=== PATIENT | female | born 1960 | race African-American/Black ===

== ENCOUNTER 2018-10-02 15:39 | Emergency (ER) | payer OTHER, MEDICARE ==
[2018-10-02] VITALS (12 sets, daily range): BP systolic 85–153; BP diastolic 50–94
[~2018-10-02] VITALS: Ht 172.7 cm; Wt 59.0 kg
--- NOTE | 2018-10-02 15:45 | NUR ---
ED Nurse Note: Patient brought in by ambulance from home. Patient in on CPAP, altered and not able to follow commands at this time. Chest rise and fall noted. Pulse oximetry reading > 94%. Per spouse, patient was gasping for air for the past [address] min[address] patient on BiPAP and typist. No ectopy noted.
[2018-10-02] MEDS ORDERED: RILUZOLE50 M1 ORAL (15:48)
--- NOTE | 2018-10-02 15:50 | NUR ---
ED Nurse Note: Skin warm to touch, cap refill < 3 sec. Reports no trauma.
[2018-10-02 16:00] LABS: BASOPHILS % (AUTO) 2.2 % (0.0-2.0); HEMATOCRIT 44.9 % (37.0-47.0); HEMOGLOBIN 14.4 G/DL (12.0-16.0); LYMPHOCYTES % (AUTO) 6.9 % (20.0-45.0); MEAN CORPUSCULAR VOLUME 96 FL (80-99); MONOCYTES % (AUTO) 3.2 % (1.0-10.0); NEUTROPHILS % (AUTO) 87.8 % (45.0-75.0); PLATELET COUNT 310 K/UL (150-450); RED BLOOD COUNT 4.66 M/UL (4.20-5.40); RED CELL DISTRIBUTION WIDTH 11.1 % (11.6-14.8); WHITE BLOOD COUNT 11.1 K/UL (4.8-10.8)
[2018-10-02] MEDS ORDERED: Naloxone 1mg/ml 2ml IVP ONE (16:00)
--- NOTE | 2018-10-02 16:00 | Emergency Room Report ---
History of Present Illness General Chief Complaint: Dyspnea/Respdistress Source: Family Member, EMS Present Illness HPI Patient presents by paramedics for acute shortness of breath The has presented and reports that the patient had an episode of appearing short of breath gasping for air and essentially needing to call paramedics Prior to this the patient was responsive upon arrival patient appears extremely weak Response to physical stimuli however Not responsive to verbal stimuli Patient does have a gag reflex reproduced However appears to have decreased respirations reports history of ALS no previous airway intubations Patient was also recently seen at the hospital for shortness of breath Otherwise there was no reports of fevers Allergies: Coded Allergies: No Known Allergies (Unverified , 10/02/18) Patient History Limited by: medical condition Past Medical History: see triage record Now: No Reviewed Nursing Documentation: PMH: Agreed; PSxH: Agreed Nursing Documentation-PMH Past Medical History: No History, Except For Review of Systems All Other Systems: limited - Other than the ones mentioned in the history of present illness all others are reviewed however they do stay limited due to the patient's mental status Physical Exam Vital Signs Date Time Temp Pulse Resp B/P (MAP) Pulse Ox O2 Delivery O2 Flow Rate FiO2 10/02/18 15:37 110 20 187/117 (140) 100 Bi-pap Sp02 EP Interpretation: reviewed, normal General Appearance: severe distress - Patient has decreased inspirations week Head: normocephalic, atraumatic Eyes: bilateral eye other - pupils are 2 mm bilaterally sluggish ENT: no angioedema Neck: supple Respiratory: other - Decreased breath sounds Cardiovascular #1: tachycardia Gastrointestinal: non tender, soft Musculoskeletal: other - Patient withdraws from physical stimuli otherwise not following commands Neurologic: responsive - As noted above Skin: no rash Lymphatic: no adenopathy Procedures Critical Care Time Critical Care Time 50 minutes for multiple re-evaluations initial critical presentation cardiac poor cardiopulmonary, respiratory arrest not including any procedural time Intubation Intubation : Consent: Emergent Intubation Method: orotracheal Tube Size (cm): 7.5 Medications: Etomidate, Succinylcholine Breath Sounds after Intubation: equal Intubation Complications: no complications Attempts: One Patient Tolerated: Well Complications: None Medical Decision Making Diagnostic Impression: Primary Impression: Respiratory failure Additional Impression: ALS (amyotrophic lateral sclerosis) ER Course Patient is a fairly complex patient with multiple differential to consideration including but not limited to cardiac cardiopulmonary and vascular emergencies Given the patient's history ALS progression also in consideration Patient's is here and discussion with him, given the patient's worsening ABG and clinical presentation airway intubation was performed Patient receiving further hydration After oxygenation is becoming more oriented and responsive requiring further sedation [facility] [place] Initially patient admitted to ICU After further work-up and intervention Patient will be transported by critical care transport and physician Labs Test 10/02/18 15:30 10/02/18 15:45 10/02/18 15:55 10/02/18 17:07 White Blood Count 11.1 K/UL (4.8-10.8) Red Blood Count 4.66 M/UL (4.20-5.40) Hemoglobin 14.4 G/DL (12.0-16.0) Hematocrit 44.9 % (37.0-47.0) Mean Corpuscular Volume 96 FL (80-99) Mean Corpuscular Hemoglobin 31.0 PG (27.0-31.0) Mean Corpuscular Hemoglobin Concent 32.1 G/DL (32.0-36.0) Red Cell Distribution Width 11.1 % (11.6-14.8) Platelet Count 310 K/UL (150-450) Mean Platelet Volume 9.4 FL (6.5-10.1) Neutrophils (%) (Auto) 87.8 % (45.0-75.0) Lymphocytes (%) (Auto) 6.9 % (20.0-45.0) Monocytes (%) (Auto) 3.2 % (1.0-10.0) Eosinophils (%) (Auto) 0.0 % (0.0-3.0) Basophils (%) (Auto) 2.2 % (0.0-2.0) Prothrombin Time 11.4 SEC (9.30-11.50) Prothromb Time International Ratio 1.1 (0.9-1.1) Activated Partial Thromboplast Time 27 SEC (23-33) Sodium Level 145 MMOL/L (136-145) Potassium Level 4.6 MMOL/L (3.5-5.1) Chloride Level 102 MMOL/L (98-107) Carbon Dioxide Level 42 MMOL/L (21-32) Anion Gap 1 mmol/L (5-15) Blood Urea Nitrogen 14 mg/dL (7-18) Creatinine 0.6 MG/DL (0.55-1.30) Estimat Glomerular Filtration Rate > 60 mL/min (>60) Glucose Level 218 MG/DL (74-106) Lactic Acid Level 1.60 mmol/L (0.4-2.0) Calcium Level 10.5 MG/DL (8.5-10.1) Total Bilirubin 0.6 MG/DL (0.2-1.0) Aspartate Amino Transf (AST/SGOT) 19 U/L (15-37) Alanine Aminotransferase (ALT/SGPT) 22 U/L (12-78) Alkaline Phosphatase 94 U/L (46-116) Total Creatine Kinase 27 U/L (26-308) Creatine Kinase MB 1.0 NG/ML (0.0-3.6) Creatine Kinase MB Relative Index 3.7 Troponin I 0.055 ng/mL (0.000-0.056) Pro-B-Type Natriuretic Peptide 76 pg/mL (0-125) Total Protein 8.9 G/DL (6.4-8.2) Albumin 4.4 G/DL (3.4-5.0) Globulin 4.5 g/dL Albumin/Globulin Ratio 1.0 (1.0-2.7) Triglycerides Level 61 MG/DL (30-150) Lipase 195 U/L (73-393) Arterial Blood pH 7.216 (7.350-7.450) 7.212 (7.350-7.450) Arterial Blood Partial Pressure CO2 90.8 mmHg (35.0-45.0) 105.8 mmHg (35.0-45.0) Arterial Blood Partial Pressure O2 103.2 mmHg (75.0-100.0) 94.9 mmHg (75.0-100.0) Arterial Blood HCO3 36.0 mmol/L (22.0-26.0) 41.6 mmol/L (22.0-26.0) Arterial Blood Oxygen Saturation 96.2 % (95-100) 95.9 % (95-100) Arterial Blood Base Excess 4.9 (-2-2) 9.5 (-2-2) Ziggy Test Positive Positive Urine Color Pale yellow Urine Appearance Clear Urine pH 5 (4.5-8.0) Urine Specific [place] 1.025 (1.005-1.035) Urine Protein 2+ (NEGATIVE) Urine Glucose (UA) Negative (NEGATIVE) Urine Ketones Negative (NEGATIVE) Urine Blood 5+ (NEGATIVE) Urine Nitrite Negative (NEGATIVE) Urine Bilirubin Negative (NEGATIVE) Urine Urobilinogen Normal MG/DL (0.0-1.0) Urine Leukocyte Esterase Negative (NEGATIVE) Urine RBC 10-15 /HPF (0 - 2) Urine WBC 0-2 /HPF (0 - 2) Urine Squamous Epithelial Cells Occasional /LPF Urine Bacteria Few /HPF (NONE) Test 10/02/18 19:22 Arterial Blood pH 7.500 (7.350-7.450) Arterial Blood Partial Pressure CO2 39.3 mmHg (35.0-45.0) Arterial Blood Partial Pressure O2 140.2 mmHg (75.0-100.0) Arterial Blood HCO3 30.0 mmol/L (22.0-26.0) Arterial Blood Oxygen Saturation 98.9 % (95-100) Arterial Blood Base Excess 6.4 (-2-2) Ziggy Test N/a Rhythm Strip Diag. Results EP Interpretation: yes Rate: 66 Rhythm: NSR, no PVC's, no ectopy Chest X-Ray Diagnostic Results Chest X-Ray Diagnostic Results #1: Chest X-Ray Ordered: Yes # of Views/Limited/Complete: 1 View Indication: Chest Pain EP Interpretation: Yes Interpretation: no consolidation, no effusion, no pneumothorax Impression: No acute disease Electronically Signed by: Henry Nice DO Chest X-Ray Diagnostic Results #2: Chest X-Ray Ordered: Yes # of Views/Limited/Complete: 1 View Indication: Other - Intubation EP Interpretation: Yes Interpretation: no consolidation, no effusion, no pneumothorax, other - ET tube appropriate Impression: Other - ET tube a properly positioned Electronically Signed by: Henry Nice DO Last Vital Signs Date Time Temp Pulse Resp B/P (MAP) Pulse Ox O2 Delivery O2 Flow Rate FiO2 10/02/18 15:37 110 20 187/117 (140) 100 Bi-pap Status: improved Disposition: XFER SHT-TRM HOSP Condition: Critical Henry Nice DO Oct 02, 2018 16:00
[2018-10-02 16:07] LABS: APPEARANCE,URINE CLEAR; BILIRUBIN, URINE NEGATIVE (NEGATIVE); COLOR,URINE PALE YELLOW; GLUCOSE, URINE (UA) NEGATIVE (NEGATIVE); KETONES,URINE NEGATIVE (NEGATIVE); LEUKOCYTE ESTERASE ,URINE NEGATIVE (NEGATIVE); NITRITE,URINE NEGATIVE (NEGATIVE); PH,URINE 5 (4.5-8.0); PROTEIN,URINE 2+ (NEGATIVE); UROBILINOGEN,URINE NORMAL MG/DL (0.0-1.0)
--- NOTE | 2018-10-02 16:10 | NUR ---
ED Nurse Note: Per spouse, patient not able to move BUE, but was able to walk without assistive device.
[2018-10-02 16:14] LABS: INR 1.1 (0.9-1.1)
--- NOTE | 2018-10-02 16:15 | NUR ---
ED Nurse Note: Patient able to open her eye spontaneously and recognized spouse. Patient remained on BiPAP and maintaining pulse oximetry reading @ 99%.
--- NOTE | 2018-10-02 16:18 | Diagnostic Imaging Report ---
Indication: Shortness of breath Technique: One view of the chest Comparison: none Findings: Lungs and pleural spaces are clear. Heart size is normal. Aorta is somewhat ectatic. Impression: No acute process
[2018-10-02 16:50] LABS: ALANINE AMINOTRANSFERASE 22 U/L (12-78); ALBUMIN 4.4 G/DL (3.4-5.0); ALKALINE PHOSPHATASE 94 U/L (46-116); ANION GAP 1 mmol/L (5-15); ASPARTATE AMINO TRANSFERASE 19 U/L (15-37); BILIRUBIN,TOTAL 0.6 MG/DL (0.2-1.0); BLOOD UREA NITROGEN 14 mg/dL (7-18); CALCIUM 10.5 MG/DL (8.5-10.1); CHLORIDE 102 MMOL/L (98-107); CREATINE KINASE 27 U/L (26-308); CREATININE 0.6 MG/DL (0.55-1.30); POTASSIUM 4.6 MMOL/L (3.5-5.1); SODIUM 145 MMOL/L (136-145)
[2018-10-02 16:52] LABS: CARBON DIOXIDE 42 MMOL/L (21-32)
--- NOTE | 2018-10-02 17:00 | NUR ---
ED Nurse Note: Dr. Nice ordered to hold CT scan of head at this time.
--- NOTE | 2018-10-02 17:36 | NUR ---
ED Nurse Note: Repeat ABG done and ERMD aware of result. RT Andrzej changed BiPAP setting. No further order received. Patient able to open her eyes when RN called her name and able to make eye contact.
--- NOTE | 2018-10-02 17:55 | NUR ---
ED Nurse Note: Etomidate 20mg and Succinylcholine 100mg given via IV @ RAC for intubation. Dr. Nice intubated pateint with size 7.5 on the 1st attempt @ 21cm to right lip. RN able to ausculate clear breath sounds bilaterally and pulse oximetry reading maintaining > 95%.
--- NOTE | 2018-10-02 18:05 | NUR ---
ED Nurse Note: Chest X-ray tech at bedside. Dr. Nice ordered to place intubation tube @ 20cm. Addendum: 10/02/18 at 1945 by PETER RUMA Donnelly repositioned ET tube.
--- NOTE | 2018-10-02 18:08 | NUR ---
ED Nurse Note: ERMD notified that patient biting on tube and having generalied shaking in BLE. Will carry out the order.
--- NOTE | 2018-10-02 18:21 | Diagnostic Imaging Report ---
Indication: Intubation Comparison: Earlier same day A single view chest radiograph was obtained. Findings: Endotracheal tube is in good position 2 cm above the arthur. No change otherwise. Stomach is distended with air. IMPRESSION: Endotracheal tube in good position
--- NOTE | 2018-10-02 18:35 | NUR ---
ED Nurse Note: Patient remained restless. Dr. Nice administered Propofol 30mg IVP via left wrist 20g.
--- NOTE | 2018-10-02 19:05 | NUR ---
ED Nurse Note: Dr. Bray at bedside and speaking to family members.
--- NOTE | 2018-10-02 19:10 | NUR ---
ED Nurse Note: Report given to RUMA Cardenas. Patient mechanically ventilating, maintaining pulse oximetry reading > 95%. Propofol infusing to right AC @ 1.76ml/hr (5mcg/kg/min). IV site remained intact to right AC 20g and left hand 20g. Patient able to open eyes when RN called her name. Bed in lowest position.
--- NOTE | 2018-10-02 19:13 | NUR ---
ED Nurse Note: RN attempted to give report. Nurse not available. will call back in 10min.
--- NOTE | 2018-10-02 19:23 | NUR ---
called and staes:order ABG,BMP,Troponin per [facility] instructions. Ordered.
--- NOTE | 2018-10-02 19:26 | History & Physical ---
History and Physical History & Physicial Michael Bray MD Oct 02, 2018 19:26
--- NOTE | 2018-10-02 19:27 | NUR ---
Spoke with Harleen at [facility]-notified of new orders. Will get results and call [facility] back.
--- NOTE | 2018-10-02 19:30 | NUR ---
ED Nurse Note: Endorsed NG tube insertion to RUMA Cardenas.
--- NOTE | 2018-10-02 19:40 | NUR ---
ED Nurse Note: NG tube was placed in, right nares 55cm. Patient tolerated procedure well. Low constant suctioning was seted up.
--- NOTE | 2018-10-02 20:09 | NUR ---
Per adjust FI02 to 40%. Respiratory notified.
[2018-10-02 20:16] LABS: ANION GAP 2 mmol/L (5-15); BLOOD UREA NITROGEN 11 mg/dL (7-18); CALCIUM 10.2 MG/DL (8.5-10.1); CARBON DIOXIDE 35 MMOL/L (21-32); CHLORIDE 108 MMOL/L (98-107); CREATININE 0.5 MG/DL (0.55-1.30); POTASSIUM 3.8 MMOL/L (3.5-5.1); SODIUM 145 MMOL/L (136-145)
--- NOTE | 2018-10-02 20:30 | History and Physical Report ---
DATE OF ADMISSION: 10/02/2018 CHIEF COMPLAINT: Respiratory distress. HISTORY OF PRESENT ILLNESS: This is a 57 years old very unfortunate female with past medical history significant for ALS diagnosed a year ago, very advanced ALS, who presented to the emergency room complaining about sudden shortness of breath. The patient had an episode of sudden shortness of breath about three days ago the past Friday, went to the emergency room at [facility]. Her status gradually improved and subsequently was discharged home. Today, the patient had another episode of shortness of breath and gasping for air. Paramedics was called in and the patient was subsequently transferred to the [facility] [facility] emergency room. It was noted the patient in severe respiratory distress with retaining CO2 on ABG and subsequently the patient was intubated due to the acute hypercapnic respiratory failure. Subsequently, the patient was admitted to the ICU. PAST MEDICAL HISTORY AND PAST SURGICAL HISTORY: History of ALS as well as diagnosed about a year ago, history of dysphagia pending for the percutaneous endoscopic gastrostomy placement and abdominoplasty surgery. MEDICATIONS: At home, please refer to medication reconciliation. ALLERGIES: No known drug allergies. SOCIAL HISTORY: Denies any smoking, alcohol, or drugs. She was a [employer]. FAMILY HISTORY: Noncontributory. REVIEW OF SYSTEMS: Mostly as above. Denies any fever or chills. No nausea or vomiting. Mostly, history taken from the because the patient is intubated and unable to respond to questions. denies any loss of consciousness or fall or head trauma or seizure activity. No bowel or urine incontinence. PHYSICAL EXAMINATION: VITAL SIGNS: On admission, temperature is 97.0, pulse of 101, respirations 24, and blood pressure 153/94. GENERAL: The patient is sedated, intubated. HEAD AND NECK: Pupils reactive to light, anicteric. ET tube in mouth. Neck was supple. No JVD. LUNGS: Good air entry. No wheezing or rales. HEART: S1, S2. Regular rhythm. No murmur or gallops. ABDOMEN: Soft, nondistended, nontender. Positive bowel sounds. EXTREMITIES: No cyanosis, clubbing, or edema. NEUROLOGIC: Limited secondary to the patient's intubated and sedated. LABORATORY AND DIAGNOSTIC DATA: Laboratory on admission from the ER, WBC of 11, hemoglobin 14, hematocrit 44, and platelets is 310. ABG on the room air, pH of 7.21, pCO2 of 90, pO2 of 103, saturating 96%. PT of 11, INR 1.1, and PTT of 27. Sodium 145, potassium 4.3, chloride 102, bicarb 42, BUN 14, creatinine 0.6, glucose is 218. Lactic acid is 1.6, calcium is 10.5. Troponin is 0.055. Triglyceride is 61. Lipase is 195. UA, +2 protein, +5 blood, 10 to 15 rbc, negative nitrite, negative leukocytes. Chest x-ray, no acute process. ASSESSMENT: 1. Acute hypoxemic respiratory failure. 2. History of ALS. 3. Dysphagia. PLAN: Admit the patient to ICU. We will follow up laboratory. Repeat the ABG. Discussed with the extensively at bedside. Code Status at this time is Full Code. DVT prophylaxis. Heparin subcutaneously. Michael Bray M.D. DR: FADI JOB#: [id number] CC:
[2018-10-02] MEDS ORDERED: Etomidate 40mg/20ml Inj IV ONE (20:42)
[2018-10-02] MEDS ORDERED: Succinylcholine 20mg/ml 10ml vial ONE (20:42)
--- NOTE | 2018-10-02 21:03 | NUR ---
ED Nurse Note: Patient's BP is 85/53, ER MD notifyed no new orders.
[2018-10-02] MEDS ORDERED: LORazepam Inj 2mg/ml 1ml IV PRN (21:15)
[2018-10-02] MEDS ORDERED: Morphine Sulfate 4mg/ml Inj (IV USE ONLY) IVP PRN (21:15)
[2018-10-02] MEDS ORDERED: Albuterol/Ipratropium 3ml neb HHN PRN (21:15)
[2018-10-02] MEDS ORDERED: Miralax 17gm pkt ORAL PRN (21:15)
[2018-10-02] MEDS ORDERED: Pantoprazole Inj ONE (21:25)
[2018-10-02] MEDS ORDERED: Dextrose 50% 25ml Syringe IV PRN (21:30)
--- NOTE | 2018-10-02 22:00 | NUR ---
ED Nurse Note: Per Dr. Moran PEEP droped to 0.0.
--- NOTE | 2018-10-02 22:35 | NUR ---
ED Nurse Note: Patient was transfered to [facility] via [id number]. Patient was transfered with Propofol running at 4 mcg/kg/min. RASS score -2 was established. Patient' family members were by bed side. AAO x3, BP 98/67, other VSS at this time, skin is dry warm to touch. Patient was transfered with all belongings.
[2018-10-03] MEDS ORDERED: Heparin 5000 units/ml inj SUBQ SCH (09:00)
[2018-10-03] MEDS ORDERED: Pantoprazole Inj IV SCH (09:00)
--- NOTE | 2018-10-04 13:07 | Cardiology Report ---
APPROVED REPORT EKG Measurement Heart [id number] Sinus tachycardia Biatrial enlargement Abnormal ECG
--- NOTE | 2018-10-06 11:33 | NUR ---
*-* INSURANCE*-* ALL CLINICALS HAVE BEEN FAXED TO: [employer] F:[phone]
== END 2018-10-02 22:35 | disposition other institution (70) ==
LOC: EDBD 15:39 → EMR 16:00 → UNDOADMIN 16:40 → ICU 16:40 → EDBEDREQ 18:22 → EMR 22:35
DX: J96.90 Respiratory failure, unspecified, unspecified whether with hypoxia or hypercapnia (principal); G12.21 Amyotrophic lateral sclerosis
CPT/HCPCS: 31500; 36415; 36600; 71045; 80048; 80053; 81003; 82550; 82553; 82803; 83605; 83690; 83880; 84478; 84484; 85025; 85610; 85730; 87040; 87081; 93005; 94002; 94664; 96361; 96374; 99291; C9113; J0330; J2310; J2704; J7040